=== PATIENT | female | born 1950 | race Caucasian/White ===

== ENCOUNTER 2024-12-11 05:55 | Day surgery (SDC) | payer MEDICARE ==
--- NOTE | 2024-12-06 11:38 | ELECTROCARDIOGRAPH REPORT ---
[facility] Test Date: 2024-12-06 Test Time: 11:35:54 Pat Name: TEVIN NUNES Department: [facility]-PRE-OP Patient ID: [facility]-[id number] Room: Gender: F Life Skills Specialist: LOLIS : 1950 Requested By: LIVIA AKERS Order Number: [id number] Reading MD: Dr. LA Fang Measurements Intervals [place] Rate: 59 P: 19 W[place]: 162 QRS: 60 QRSD: 96 T: 48 QT: 422 QTc: 418 Interpretive Statements Sinus bradycardia Borderline T wave abnormalities Baseline wander in lead(s) V1,V2 Electronically Signed On 12-06-2024 19:01:[address] LA Fang Please click the below link to view image of tracing.
[2024-12-06 11:56] LABS: ALBUMIN/GLOBULIN RATIO 1.2 (1.1-1.5); ALKALINE PHOSPHATASE 49 IU/L (46-116); BASOPHILS % (AUTO) 0.5 % (0-1); BLOOD UREA NITROGEN 11 MG/DL (7-18); BUN/CREATININE RATIO 19.6 (10.0-20.0); CALCIUM 9.3 MG/DL (8.5-10.1); CHLORIDE 104 MMOL/L (99-107); CREATININE 0.56 MG/DL (0.40-0.90); LYMPHOCYTES # (AUTO) 1.6 X10'3 (1.1-4.8); LYMPHOCYTES % (AUTO) 39.6 % (21-51); MEAN CORPUSCULAR HGB CONC 33.6 g/dL (33.0-36.5); MEAN CORPUSCULAR VOLUME 98.3 FL (78-98); MEAN PLATELET VOLUME 7.7 FL (7.4-10.4); MONOCYTES # (AUTO) 0.4 X10'3 (0-0.9); MONOCYTES % (AUTO) 8.9 % (2-12); PRE OP ALT 28 U/L (30-65); PRE OP ANION GAP 3 (8-16); PRE OP AST 19 U/L (10-37); PRE OP BILIRUB, TOTAL 0.4 MG/DL (0.0-1.0); PRE OP GLUCOSE 100 MG/DL (70-104); PRE OP HEMATOCRIT 43.4 % (35.0-45.0); PRE OP HEMOGLOBIN 14.6 g/dL (12.0-16.0); PRE OP PLATELET COUNT 261 X10'3 (140-440); PRE OP POTASSIUM 4.3 MMOL/L (3.4-5.1); PRE OP SODIUM 140 MMOL/L (135-145); PRE OP WHITE BLOOD COUNT 4.1 10'3 (4.8-10.8); RED BLOOD COUNT 4.42 X10'6 (4.20-5.60); RED CELL DISTRIBUTION WIDTH 13.5 % (11.5-14.5); TOTAL PROTEIN 7.3 G/DL (6.4-8.2); eGFR > 90 ML/MIN
[~2024-12-11] VITALS: Ht 167.6 cm; Wt 72.3 kg
[2024-12-11] VITALS (7 sets, daily range): BP systolic 137–155; BP diastolic 75–105; PULSE 54–63; RESP 11–16; TEMP 97.8; O2SAT 94–98
[2024-12-11] MEDS: ceFAZolin 2gm in dextrose, iso 50 ML IV ONE (05:30)
[~2024-12-11 05:55] MED LIST: ALEN70TA37 PO; CHOL100046 PO; DOCUMENT DATE & TIME OF BETA-BLOCKER PO ONE; PROP10TA10 PO
[2024-12-11] MEDS ORDERED: hydrALAZINE 20mg/ml inj. IV PRN (08:00)
[2024-12-11] MEDS ORDERED: ceFAZolin/D5W- 1GM premix 50 ML IV ONE (08:00)
[2024-12-11] MEDS ORDERED: morphine 4 MG/ML inj SYRINge IV PRN (08:00)
[2024-12-11] MEDS ORDERED: morphine 2 MG/ML inj. syringe IV PRN (08:00)
[2024-12-11] MEDS ORDERED: ringers solution, lacted 1,000 ML IV SCH (08:00)
[2024-12-11] MEDS ORDERED: ondansetron/PF 4mg/2ml inj IV PRN (08:00)
[2024-12-11] MEDS ORDERED: labetalol 20mg/4ml (5mg/ml) syringe IV PRN (08:00)
[2024-12-11] MEDS ORDERED: fentaNYL/PF 50MCG/1 ML 2ML syringe IV PRN ×2 (08:00)
[2024-12-11] MEDS: famotidine 20mg tablet PO ONE (08:37)
[2024-12-11] MEDS: ringers solution, lacted 1,000 ML IV SCH (08:39)
[2024-12-11] MEDS ORDERED: BUPIVAcaine/PF 2.5mg/ml (0.25%) 10ml vial ONE (09:32)
[2024-12-11] MEDS ORDERED: LIDOcaine 2% (20mg/ml) 5ml vial ONE ×2 (09:32→10:31)
[2024-12-11] MEDS ORDERED: propofol 10mg/ml 20ml vial IV ONE (10:16)
[2024-12-11] MEDS ORDERED: fentaNYL/PF 50MCG/1 ML 2ML syringe ONE (10:17)
[2024-12-11] MEDS ORDERED: midazolam 1 mg/ML 2ml injection ONE (10:17)
[2024-12-11] MEDS ORDERED: diphenhydrAMINE 50 mg/ml inj ONE (10:39)
--- NOTE | 2024-12-11 13:40 | OPERATIVE REPORT ---
Operative Report Providers to ~ Date of Procedure: Dec 11, 2024 Pre-Operative Diagnosis: Left CTS, right middle trigger, right index wart Post-Operative Diagnosis Left wrist carpal tunnel syndrome, right middle finger trigger finger, right index finger verrucous wart Procedure Performed Left wrist open carpal tunnel release, right middle finger trigger release, excision of lesion right index finger Surgeon: Wolfgang Mayberry MD [employer] None Anesthesiologist: Tito Landry Type of Anesthesia: Other Findings: Local anesthetic in both extremities was utilized Estimated Blood Loss: None Specimen Removed: None Description of Procedure: The patient is a 74-year-old woman with left-sided carpal tunnel syndrome refractory to nonsurgical treatment. She also has a right middle trigger finger and a wart on the radial side of the right index finger Surgery is indicated to relieve symptoms. Consent was obtained from the patient and risks and benefits were explained. The patient was brought to the operating room where the left arm was prepped and draped in usual manner. Local anesthetic was infiltrated just proximal to the carpal tunnel and the forearm tourniquet was inflated to 250 mmHg. A 3 cm incision was made in the palm ulnar to the thenar crease in line with the radial side of the ring finger dissecting down to the transverse carpal ligament. A straight incision was made in line with the skin incision in the transverse carpal ligament and the median nerve was identified in the carpal canal. The nerve was protected while the ligament was divided distally to the transverse arch and proximally to the wrist crease followed by division of the forearm fascia. The nerve was decompressed at this point so the incision was irrigated and closed with nylon suture. A sterile dressing was applied and the tourniquet was released. The hand perfused well. Attention was turned to the right hand where the arm was prepped and draped in usual manner. Local anesthetic was infiltrated proximal to the middle and index finger. The tourniquet was elevated on the forearm. The trigger finger was addressed with a straight incision over the flexor tendon at the distal palm over the middle finger. Dissection was taken down to the tendon sheath which was identified and split midline. The A1 roddy was divided the tendons were inspected. They were free of any lesions so the incision was irrigated and closed with nylon suture. An accident incision was made over the radial side of the index finger mid aspect. It was what appeared to be a verrucous wart. A 2 cm incision was made elliptically around the mass and was traced down to the deeper tissues and excised in one piece measuring approximately 1 cm across. Extra skin had been removed in order to effect closure directly Deep cauterization was done followed by skin closure with nylon suture. Sterile dressing was then applied at both surgical sites and the tourniquet was released. The hand perfused well. The patient was then taken to the recovery room in stable condition and tolerated the procedure well. WOLFGANG MAYBERRY Jr., MD Dec 11, 2024 13:40
== END 2024-12-11 11:58 | disposition home or self-care (01) ==
LOC: PAS 05:55
PROVIDERS: ATTEND Orthopaedic Surgery Hand Surgery
DX: G56.02 Carpal tunnel syndrome, left upper limb (principal); M65.331 Trigger finger, right middle finger; B07.9 Viral wart, unspecified; M81.0 Age-related osteoporosis without current pathological fracture; M18.11 Unilateral primary osteoarthritis of first carpometacarpal joint, right hand; M19.041 Primary osteoarthritis, right hand; Z79.899 Other long term (current) drug therapy; I10 Essential (primary) hypertension; Z90.710 Acquired absence of both cervix and uterus; Z98.49 Cataract extraction status, unspecified eye
CPT/HCPCS: 17110; 26055; 36415; 64721; 80053; 82948; 85025; 93005; A4215; A6449; J0690; J1200; J2003; J2250; J2704; J3010; J3490; J7030; J7120; Z7506; Z7512; Z7610